=== PATIENT | female | born 1995 | race Caucasian/White ===

== ENCOUNTER 2019-12-04 09:52 | Inpatient (IN) | payer OTHER ==
[~2019-12-04] VITALS: Ht 175.3 cm; Wt 82.1 kg
[2019-12-04] VITALS (19 sets, daily range): BP systolic 116–145; BP diastolic 68–87
[2019-12-04] MEDS ORDERED: ASPI81CH2 PO (10:17)
[2019-12-04] MEDS ORDERED: MULTTAB20 PO (10:17)
--- NOTE | 2019-12-04 10:57 | HPEPDOC ---
Obstetrical History & Physical General Date of Admission Dec 04, 2019 at 09:52 History of Present Illness 24yo at 36+6wks with mono/di twin gestation presenting for scheduled IOL pe r MFM recommendations of 36-37wks. She reports irregular ctx's. Denies VB, LOF, or DFM for both babies. Chief Complaint: Induction of labor Information Provided By: Patient Care Care: Good Care Dating Final EDC: Dec 26, 2019 Final EDC for Daily Update: Dec 26, 2019 Final EDC by: LMP Antepartum Course Diagnos(e)s [place]/di twin gestation GDMA1 GBS positive Height (inches): 69 Pre- weight (lbs.): 135 Admission Weight (lbs.): 178 Change in Weight (lbs.): 43 Past Medical History Past Obstetrical History : Past Obstetrical History: [employer] History: No pertinent history Past Medical History Medical History Denies Surgical History: Denies/None Family History Significant Family History: Heart disease (MGM), Other (Alzheimer - PGM, PGF) Social History Marital Status: Family situation: Spouse/partner home Psychosocial History: No pertinent psych hx * Smoker: current smoker Alcohol: Denies Drugs: denies Abuse Violence Screening Have you been hit/kicked/slapp: No Have you been sexually assault: No Imunizations Tdap status: current (10/07/19) Influenza Status: current () Allergies Coded Allergies: No Known Allergies (Unverified , 12/04/19) Medications Scheduled Aspirin (Aspirin) 81 Mg Tab.chew, 1 TAB PO DAILY for pain No122/Iron/Folic Acid ( Multi Tablet) 1 Each Tablet, 1 TAB PO DAILY Physical Examination Physical Examination GENERAL: Alert and oriented times three. CARDS: well-perfused RESP: no exaggerated respiratory effort appreciated ABDOMEN: Gravid and non-tender to touch. FETUS: Is vertex (VTX) by sterile vaginal examination (SVE), fetus is vertex (VTX) by Cipriano. : NEFG, SVE 3-4/80/-1 EXTREMITIES: No edema. Laboratory Data 24H LABS Laboratory Tests 2 12/04/19 09:57: Serology Scanned Report Hepatitis B Testing Urine Culture: No Growth Pertinent Laboratoy Data Blood Type: O+ RBC Antibody Screen: Negative HIV: Negative Hepatitis B: Negative Rapid Plasma Reagin: Nonreactive Rubella: Immune Varicella: Immune Chlamydia/Gonorrhea: Negative Group B Streptococcus: Positive Quad Screen Test: Declined Cystic Fibrosis: Negative Glucose Tolerance Test: 79 Anatomy Ultrasound Placenta Location: Posterior Normal Anatomy: Yes Placenta Previa: No Vaginal Examination Dilation: 3 cm Effacement: 80% Station: -1 Cervical Consistency: Soft Cervical Position: Middle Presentation: Cephalic presentation (for both babies (baby A maternal left, baby B maternal right)) Assessment Heart Rate (FHR): 135 (x2) Variability: Moderate Accelerations: Positive Decelerations: None Tocometer Contractions: Yes Frequency: greater than 10 min/apart Multi-drug resistant Organism: No history of MDRO Assessment/Plan Assessment 24yo at 36+6wks with mono/di twins presenting for scheduled IOL per [facility] recommendations of 36-37wks. Patient received BTMZ on . GBS positive. Vertex/Vertex presentation. SVE 380/-1. FHRT cat I for both babies. Plan Admit and orient. Fly Finisher and consent. Diet: clears as tolerated Continuous EFM, consider internalization if clinically indicated Group B Streptococcus (GBS) positive - PCN for ppx Labs and intravenous (IV) per unit protocol. Counseled on Pitocin and induction of labor (IOL). Lactated Ringers (LR): 125 mL/hr. Anticipate normal spontaneous delivery (). C-S as appropriate. VLADIMIR WOODWARD DO Dec 04, 2019 10:57
[2019-12-04 11:29] LABS: HEMATOCRIT 35.2 % (36.0-47.0); HEMOGLOBIN 11.8 g/dl (12.0-15.5); MEAN CORPUSCULAR HEMOGLOBIN 30.4 pg (27.0-33.0); MEAN CORPUSCULAR HGB CONC 33.5 g/dl (32.0-36.5); MEAN CORPUSCULAR VOLUME 90.7 fl (80.0-96.0); PLATELET COUNT, AUTOMATED 135 10^3/uL (150-450); RED BLOOD COUNT 3.88 10^6/uL (4.00-5.40); WHITE BLOOD COUNT 10.8 10^3/uL (4.0-10.0)
[2019-12-04] MEDS ORDERED: PENICILLIN G POTASSIUM 5 MU VIAL As Ordered ONE (11:47)
--- NOTE | 2019-12-04 18:18 | IPNPDOC ---
Obstetrical Progress Note Date of Service Dec 04, 2019 Subjective Patient reports feeling well with minimal pain but is feeling ctx's. She reports her water broke at 1730. Objective Vital Signs Date Time Temp Pulse Resp B/P (MAP) Pulse Ox O2 Delivery O2 Flow Rate FiO2 12/04/19 16:08 97.6 67 18 123/80 (94) Assessment Heart Rate (FHR): 140 (Baby A: 150bpmBaby B: 130bpm) Variability: Moderate Accelerations: Positive Decelerations: None Heart Rate Tracing: Category I Tocometer Contractions: Yes Frequency: every 2-2 min. Sterile Vaginal Examination Dilation: 5 cm Effacement (%): 90% Station: -1 Cervical Consistency: Soft Cervical Position: Anterior Postion/Presentation: Cephalic presentation Assessment and Plan Status: Reassuring Group B Streptococcus: Positive Anticipate: Vaginal Delivery Additional Comments FHRT cat I for both babies. Tocometry reveals ctx's q2-3min with pitocin protocol at 16mU/min. SVE revealed grossly ruptured with clear fluid with cervix now 5/90/-1. Patient has made cervical change and clinically doing well. Will continue pitocin protocol at this time for expectant . Patient may have epidural if desired but she declines at this time. VLADIMIR WOODWARD DO Dec 04, 2019 18:18
[2019-12-04] MEDS ORDERED: METHYLERGONOVINE MALEATE 0.2 MG/ML VIAL (J2210) As Ordered ONE (22:10)
[2019-12-04] MEDS ORDERED: OXYTOCIN 30 UNITS IN 0.9% NaCl 500ML IV BAG (J2590) As Ordered ONE (22:19)
--- NOTE | 2019-12-04 22:27 | IPNPDOC ---
Obstetrical Progress Note Date of Service Dec 04, 2019 Subjective Patient feeling pressure with ctx's and desire to push. Declines pain meds. Objective Vital Signs Date Time Temp Pulse Resp B/P (MAP) Pulse Ox O2 Delivery O2 Flow Rate FiO2 12/04/19 18:39 57 139/83 (101) 12/04/19 16:08 18 12/04/19 16:08 97.6 Assessment Heart Rate (FHR): 130 (x2) Variability: Moderate Accelerations: Positive Decelerations: None Heart Rate Tracing: Category I Tocometer Contractions: Yes Frequency: regular, every 2-2 min. Sterile Vaginal Examination Dilation: 9 cm Effacement (%): 100% Station: 0 Cervical Consistency: Soft Cervical Position: Anterior Postion/Presentation: Cephalic presentation Assessment and Plan Status: Reassuring Group B Streptococcus: Positive Anticipate: Vaginal Delivery Additional Comments SVE 9/c/+1. FHRT cat I for both babies. Plan for expectant . Patient desires to proceed, safe to continue. VLADIMIR WOODWARD DO Dec 04, 2019 22:24
--- NOTE | 2019-12-04 22:47 | DNPDOC ---
[facility] Delivery Note Delivery Note DATE OF DELIVERY: 12/04/2019 PREDELIVERY DIAGNOSIS: 1. [place]/di twin gestation 2. 36+6/7 weeks' gestation and labor. 3. GDMA1 4. GBS positive POST DELIVERY DIAGNOSIS: 1. [place]/di twin gestation 2. 36+6/7 weeks' gestation and labor. 3. GDMA1 4. GBS positive PROCEDURE: Spontaneous vaginal delivery. AUTOMATIC DEVELOPER: Dr. Vladimir Woodward ANESTHESIA: Local. ESTIMATED BLOOD LOSS: 600 mL. FINDINGS: Baby A: 5 pound 9 ounce 2510g female , Score 9/9, very short umbilical cord (6cm), no meconium, no nuchal cord. Baby B: 6 pound 5 ounce 2870g female infant, Score 8/9, no meconium, no nuchal cord. [place]/di placenta DELIVERY SUMMARY: 24yo now s/p of mono/di twin gestation at 36+6wks. Patient found to be c/c/+2 and pushing with excellent maternal effort. Spontaneous vaginal delivery of baby A. Presentation was OA with restitution to ROT with left shoulder anterior position. Anterior shoulder and body delivered spontaneously. Very short umbilical cord noted (about 6cm). Therefore A held on perineum while dried with spontaneous cry for 2 minutes then three vessel cord clamped x2 and cut by FOB. Infant placed on maternal abdomen. Exam revealed baby B in cephalic presentation at 0 station. AROM performed notable for clear fluid followed by precipitous delivery within 2 maternal pushes. Presentation was OA with restitution to ROT with left shoulder anterior position. Anterior shoulder and body delivered spontaneously. B placed on maternal abdomen where she was dried and bulb suctioned with spontaneous cry. Pitocin IV bolus initiated. After 6 minutes of delayed cord clamping, three vessel cord clamped x2 and cut by FOB. Baby A cord marked by one clamp and baby B cord marked by 2 clamps. Cord blood sample obtained for both babies. Third stage spontaneous with intact placenta. Fundal massage revealed boggy uterine tone and was firmed with massage. Inspection revealed 2nd degree perineal laceration that was repaired using 2-0 vicryl in routine fashion under 1% lidocaine anesthesia with good approximation of tissue and hemostasis. During repair, active uterine bleeding noted. Therefore bimanual massage performed notable for passage of small clots. 0.2mg Methergine given IM. At completion of repair, bimanual massage repeated with improvement in tone and hemostasis appreciated. EBL 600ml. Patient and both infant stable and bonding upon my leaving the room. VLADIMIR WOODWARD DO Dec 04, 2019 22:46
[2019-12-05 01:19] VITALS: BP 121/66
[2019-12-05 05:56] VITALS: BP 127/68
[2019-12-05 07:13] LABS: HEMATOCRIT 28.2 % (36.0-47.0); MEAN CORPUSCULAR HEMOGLOBIN 30.5 pg (27.0-33.0); MEAN CORPUSCULAR HGB CONC 33.7 g/dl (32.0-36.5); MEAN CORPUSCULAR VOLUME 90.7 fl (80.0-96.0); PLATELET COUNT, AUTOMATED 106 10^3/uL (150-450); RED BLOOD COUNT 3.11 10^6/uL (4.00-5.40); WHITE BLOOD COUNT 12.5 10^3/uL (4.0-10.0)
[2019-12-05 07:23] LABS: HEMOGLOBIN 9.5 g/dl (12.0-15.5)
--- NOTE | 2019-12-05 09:00 | IPNPDOC ---
Progress Note Date of Service: Dec 05, 2019 Day#: 1 Progress Note SUBJECT: Ludivina is a 24yo s/p x2 for mono/di twin gestation doing well day # 1. She has been ambulating, voiding spontaneously without issue and tolerating regular diet. Breast feeding without issue. Reports lochia is decreasing. Patient is ambulating well. Pain controlled on current pain meds. OBJECTIVE: VITAL SIGNS: Within normal limits, afebrile. Alert and oriented times three. RESP: no exaggerated respiratory effort, no cough CARDS: well-perfused Abdomen: Fundus firm at U-2. Soft, appropriately tender to palpation : mild edema, scant lochia Ext: no edema, no calf tenderness ASSESSMENT: Ludivina is a 24yo s/p x2 for mono/di twin gestation doing well day # 1. Vitals within normal limits, afebrile, hemodynamically stable with no evidence of infection. PLAN: 1. Discharge planning to home tomorrow 2. Continue current pain mgmt - patient counseled discharge meds are ready for pick-up at [place] [facility] 3. Encourage breast feeding with support 4. Encourage regular diet as tolerated. 5. Encourage ambulation OOB as tolerated. 6. Patient to f/u in 6 weeks for pp visit VS, I&O, 24H, Aime Vital Signs/I&O Vital Signs Date Time Temp Pulse Resp B/P (MAP) Pulse Ox O2 Delivery O2 Flow Rate FiO2 12/05/19 05:56 97.4 65 17 127/68 (87) 12/05/19 01:19 99 I&O- Last 24 Hours up to 6 AM 12/05/19 05:59 Intake Total 1875 ml Output Total 1950 ml Balance -75 ml Laboratory Data 24H LABS Laboratory Tests 2 12/04/19 09:57: Serology Scanned Report Hepatitis B Testing 12/04/19 11:17: Nucleated Red Blood Cells % (auto) 0.2H, Syphilis Serology NONREACTIVE 12/05/19 06:39: Nucleated Red Blood Cells % (auto) 0.0 CBC/BMP Laboratory Tests 12/04/19 11:17 12/05/19 06:39 VLADIMIR WOODWARD DO Dec 05, 2019 09:00
[2019-12-05 18:04] VITALS: BP 132/81
[2019-12-06 06:00] VITALS: BP 113/59
[2019-12-06] MEDS ORDERED: DOCU100C16 PO (07:21)
[2019-12-06] MEDS ORDERED: DIBU10OI TOP (07:21)
[2019-12-06] MEDS ORDERED: IBUP80TA PO (07:21)
--- NOTE | 2019-12-08 07:47 | DS ---
DATE OF ADMISSION: 12/04/2019 DATE OF DISCHARGE: 12/06/2019 This lady is a 1, now para 2, who was admitted for induction of labor at 36 and 6 weeks of gestation of monochorionic, diamniotic twins. GBS positive and AGDM1. She had a spontaneous vaginal delivery of a live- baby A, 5 pounds 9 ounces, 2510 grams, female, scores 9 and 9 at one and five minutes, respectively. Baby B was vertex, spontaneous vaginal delivery, 6 pounds 5 ounces, 2870 grams, scores of 8 and 9 at one and five minutes, respectively. No blood gases were performed. Her admitting hemoglobin 11.8, hematocrit 35.2, and platelets 135. Discharge hemoglobin 9.5, hematocrit 28.2, and platelets are 106. The rest of the examination is unremarkable. Normocephalic, atraumatic. Neck: Full range of motion. Pupils equal and reactive to light. Distal pulses are symmetric. No evidence of deep venous thrombosis (DVT), pulmonary embolus (PE), or superficial phlebitis. Chest is clear bilaterally to bases. No wheezes or rhonchi. No costovertebral angle (CVA) tenderness. Abdomen is soft. Four-quadrant bowel sounds are noted. The uterus is 2 below. Lochia is moderate. Blood pressure 113/59, respirations 16, pulse 68, temperature 98.6. Plans are for discharge today. She has a 6-week checkup. Medications were dispensed at [facility]. All questions were answered. A 20-minute discussion. HIRO
== END 2019-12-06 14:15 | disposition home or self-care (01) | DRG 807 ==
LOC: M LDI 09:52 → M OBS 12-05 01:16
PROC: 10E0XZZ Delivery of Products of Conception, External Approach (ICD-10-PCS; principal; 2019-12-04)
PROC: 0KQM0ZZ Repair Perineum Muscle, Open Approach (ICD-10-PCS; 2019-12-04)
PROC: 10907ZC Drainage of Amniotic Fluid, Therapeutic from Products of Conception, Via Natural or Artificial Opening (ICD-10-PCS; 2019-12-04)
DX: O30.033 Twin pregnancy, monochorionic/diamniotic, third trimester (principal); Z37.2 Twins, both liveborn; Z3A.36 36 weeks gestation of pregnancy; O99.820 Streptococcus B carrier state complicating pregnancy; O24.420 Gestational diabetes mellitus in childbirth, diet controlled; O69.3XX1 Labor and delivery complicated by short cord, fetus 1; O70.1 Second degree perineal laceration during delivery